=== PATIENT | male | born 1990 | race Two or more races ===

== ENCOUNTER 2021-06-08 00:04 | Emergency (ER) | payer MEDICAID, OTHER ==
[~2021-06-08] VITALS: Ht 188 cm; Wt 81.6 kg
[2021-06-08 00:05] VITALS: BP 137/88
== END 2021-06-08 03:01 | disposition left against medical advice (07) ==
LOC: ER 00:04
DX: S01.81XA Laceration without foreign body of other part of head, initial encounter (principal); Z53.21 Procedure and treatment not carried out due to patient leaving prior to being seen by health care provider; W01.0XXA Fall on same level from slipping, tripping and stumbling without subsequent striking against object, initial encounter; Y93.89 Activity, other specified; Y92.89 Other specified places as the place of occurrence of the external cause; Y99.8 Other external cause status

== ENCOUNTER 2021-10-02 06:12 | Emergency (ER) | payer MEDICAID ==
[~2021-10-02] VITALS: Ht 188 cm; Wt 81.6 kg
[2021-10-02 08:07] VITALS: BP 134/78
[2021-10-02] MEDS ORDERED: ACETAMINOPHEN 500 MG TAB PO ONE (08:15)
== END 2021-10-02 08:31 | disposition home or self-care (01) ==
LOC: ER 06:12
DX: U07.1 COVID-19 (principal); R51.9 Headache, unspecified; R53.83 Other fatigue
CPT/HCPCS: 36415; 71045; 87426

== ENCOUNTER 2021-10-09 12:18 | Emergency (ER) | payer MEDICAID ==
[~2021-10-09] VITALS: Ht 188 cm; Wt 81.6 kg
[2021-10-09 17:16] VITALS: BP 128/86
[2021-10-09] MEDS ORDERED: AMOX-277 PO (17:59)
[2021-10-09] MEDS ORDERED: PRED20TA2 PO (17:59)
== END 2021-10-09 18:05 | disposition home or self-care (01) ==
LOC: ER 12:18
DX: J06.9 Acute upper respiratory infection, unspecified (principal); Z20.822 Contact with and (suspected) exposure to COVID-19
CPT/HCPCS: 36415; 71045; 87426